=== PATIENT | female | born 1985 | race Two or more races ===

== ENCOUNTER 2022-10-13 15:08 | Emergency (ER) | payer MEDICAID, OTHER ==
[~2022-10-13] VITALS: Ht 152.4 cm; Wt 88.0 kg
[2022-10-13 15:30] VITALS: BP 115/78
[2022-10-13] MEDS ORDERED: CIP03OS RIGHTEYE (16:15)
== END 2022-10-13 16:19 | disposition home or self-care (01) ==
LOC: ER 15:08
DX: H10.31 Unspecified acute conjunctivitis, right eye (principal)

== ENCOUNTER 2023-05-13 09:28 | Emergency (ER) | payer MEDICAID ==
[~2023-05-13] VITALS: Ht 152.4 cm; Wt 83.4 kg
[~2023-05-13 09:28] MED LIST: CIP03OS RIGHTEYE
[2023-05-13 10:13] VITALS: BP 138/65; PULSE 110; RESP 18; TEMP 97.6; O2SAT 99
== END 2023-05-13 11:07 | disposition home or self-care (01) ==
LOC: ER 09:28
DX: S86.911A Strain of unspecified muscle(s) and tendon(s) at lower leg level, right leg, initial encounter (principal); Z88.6 Allergy status to analgesic agent; X58.XXXA Exposure to other specified factors, initial encounter; Y93.89 Activity, other specified; Y92.89 Other specified places as the place of occurrence of the external cause; Y99.8 Other external cause status
CPT/HCPCS: 93971